=== PATIENT | female | born 1995 | race Caucasian/White ===

== ENCOUNTER → 2017-02-14 | Outpatient (CLI) | payer BC ==
[2016-03-14 06:52] VITALS: BP 122/82
[~2017-02-14] MED LIST: BACI28.43 TP
[2017-02-14 09:13] LABS: ALBUMIN 3.7 g/dL (3.4-5.0); CALCIUM 9.1 mg/dL (8.5-10.1); CREATININE 0.9 mg/dL (0.6-1.0); GFR 77.6; POTASSIUM 3.7 mmol/L (3.5-5.1); TOTAL BILIRUBIN 0.4 mg/dL (0.2-1.0); TOTAL PROTEIN 7.5 g/dL (6.4-8.2)
[2017-02-14 09:15] LABS: BASO % 1 % (0-3); EOS % 3 % (0-3); HEMATOCRIT 39.3 % (36.0-47.0); HEMOGLOBIN 13.6 g/dL (12.0-15.5); LYMPH # 2.4 x10^3/uL (1.0-4.8); LYMPH % 28 % (24-48); MEAN CORPUSCULAR HEMOGLOBIN 31 pg (25-35); MEAN CORPUSCULAR HGB CONC 35 g/dL (31-37); MEAN CORPUSCULAR VOLUME 89 fL (79-100); MONO % 7 % (0-9); NEUT % 62 % (31-73); PLATELET COUNT 235 x10^3/uL (140-400); RED BLOOD COUNT 4.41 x10^6/uL (3.50-5.40); RED CELL DISTRIBUTION WIDTH 12.6 % (11.5-14.5); WHITE BLOOD COUNT 8.5 x10^3/uL (4.0-11.0)
[2017-02-14 09:26] LABS: FREE T4 0.91 ng/dL (0.76-1.46)
== END | disposition home or self-care (01) ==
LOC: LAB 08:25
PROVIDERS: ATTEND Physician Assistant
DX: K51.90 Ulcerative colitis, unspecified, without complications (principal)
CPT/HCPCS: 36415; 80053; 84439; 84443; 84481; 85027

== ENCOUNTER 2018-08-19 15:29 | Emergency (ER) | payer BC, OTHER ==
[~2018-08-19] VITALS: Ht 162.6 cm; Wt 65.8 kg
[2018-08-19 15:51] VITALS: BP 106/68
[2018-08-19] MEDS ORDERED: IPRATRPIUM/ALBUTEROL 0.5/2.5MG 3 ML NEBU. NEB ONE (16:00)
[2018-08-19 16:14] LABS: BILIRUBIN,URINE NEGATIVE (NEG); CLARITY,URINE CLEAR; COLOR,URINE YELLOW; NITRITE,URINE NEGATIVE (NEG); PH,URINE 6.5; PROTEIN,URINE NEGATIVE (NEG-TRACE)
[2018-08-19 16:26] LABS: INFLUENZA A PATIENT NEGATIVE (NEGATIVE); INFLUENZA B PATIENT NEGATIVE (NEGATIVE)
[2018-08-19 16:36] LABS: BACTERIA,URINE MODERATE /HPF (0-FEW); RBC,URINE OCC /HPF (0-2); SQUAMOUS EPITHELIAL CELL,UR MOD /LPF; WBC,URINE OCC /HPF (0-4)
[2018-08-19] MEDS ORDERED: ALBU2.5V8 INH (16:46)
[2018-08-19] MEDS ORDERED: PRED50TA PO (16:46)
--- NOTE | 2018-08-19 16:46 | PHYS DOC ---
Past Medical History Past Medical History: Other Additional Past Medical Histor: ULCERATIVE COLITIS Past Surgical History: No Surgical History Alcohol Use: Occasionally Drug Use: None Adult General Chief Complaint Chief Complaint: SORE THROAT HPI HPI Patient is a 23 year old [f__sex] who presents with [] Review of Systems Review of Systems Constitutional: Denies fever or chills [] Eyes: Denies change in visual acuity, redness, or eye pain [] HENT: Denies nasal congestion or sore throat [] Respiratory: Denies cough or shortness of breath [] Cardiovascular: No additional information not addressed in HPI [] GI: Denies abdominal pain, nausea, vomiting, bloody stools or diarrhea [] : Denies dysuria or hematuria [] Musculoskeletal: Denies back pain or joint pain [] Integument: Denies rash or skin lesions [] Neurologic: Denies headache, focal weakness or sensory changes [] Endocrine: Denies polyuria or polydipsia [] All other systems were reviewed and found to be within normal limits, except as documented in this note. Current Medications Current Medications Current Medications Medications (Trade) Dose Ordered Sig/Rosendo Start Time Stop Time Status Last Admin Dose Admin Albuterol/ Ipratropium (Duoneb) 3 ml 1X ONCE 08/19/18 16:00 08/19/18 16:01 DC 08/19/18 15:49 3 ML Ibuprofen (Motrin) 800 mg 1X ONCE 08/19/18 17:00 08/19/18 17:01 08/19/18 16:41 800 MG Allergies Allergies Allergies Coded Allergies Type Severity Reaction Last Updated Verified No Known Drug Allergies 03/14/16 No Physical Exam Physical Exam Constitutional: Well developed, well nourished, no acute distress, non-toxic appearance. [] HENT: Normocephalic, atraumatic, bilateral external ears normal, oropharynx moist, no oral exudates, nose normal. [] Eyes: PERRLA, EOMI, conjunctiva normal, no discharge. [] Neck: Normal range of motion, no tenderness, supple, no stridor. [] Cardiovascular:Heart rate regular rhythm, no murmur [] Lungs & Thorax: Bilateral breath sounds clear to auscultation [] Abdomen: Bowel sounds normal, soft, no tenderness, no masses, no pulsatile masses. [] Skin: Warm, dry, no erythema, no rash. [] Back: No tenderness, no CVA tenderness. [] Extremities: No tenderness, no cyanosis, no clubbing, ROM intact, no edema. [] Neurologic: Alert and oriented X 3, normal motor function, normal sensory function, no focal deficits noted. [] Psychologic: Affect normal, judgement normal, mood normal. [] Current Patient Data Vital Signs Vital Signs Date Time Temp Pulse Resp B/P (MAP) Pulse Ox O2 Delivery O2 Flow Rate FiO2 08/19/18 15:51 Room Air 08/19/18 15:51 98.7 82 16 106/68 (81) 98 98.7 Lab Values Laboratory Tests Test 08/19/18 15:40 08/19/18 15:50 08/19/18 16:07 Influenza Type A Antigen Negative (NEGATIVE) Influenza Type B Antigen Negative (NEGATIVE) Urine Collection Type Unknown Urine Color Yellow Urine Clarity Clear Urine pH 6.5 Urine Specific [place] >=1.030 Urine Protein Negative mg/dL (NEG-TRACE) Urine Glucose (UA) Negative mg/dL (NEG) Urine Ketones (Stick) Negative mg/dL (NEG) Urine Blood Negative (NEG) Urine Nitrite Negative (NEG) Urine Bilirubin Negative (NEG) Urine Urobilinogen Dipstick 1.0 mg/dL (0.2 mg/dL) Urine Leukocyte Esterase Negative (NEG) Urine RBC Occ /HPF (0-2) Urine WBC Occ /HPF (0-4) Urine Squamous Epithelial Cells Mod /LPF Urine Bacteria Moderate /HPF (0-FEW) Urine Mucus Marked /LPF POC Urine HCG, Qualitative Hcg negative (Negative) EKG EKG [] Radiology/Procedures Radiology/Procedures [] Course & Med Decision Making Course & Med Decision Making Pertinent Labs and Imaging studies reviewed. (See chart for details) [] Dragon Disclaimer Dragon Disclaimer This electronic medical record was generated, in whole or in part, using a voice recognition dictation system. Departure Departure Impression: Primary Impression: Viral illness Disposition: 01 HOME, SELF-CARE Condition: STABLE Referrals: JOSE ARMANDO COREA MD (PCP) Patient Instructions: Upper Respiratory Infection, Adult Additional Instructions: Take medication as directed. Follow-up with your primary care provider in 3-4 days if not improving or return to the emergency department if worsening. You may use [id number] cough and cold medication for symptom relief. Scripts Prednisone (PREDNISONE) 50 Mg Tablet 1 TAB PO DAILY for wheezing, #5 TAB Prov: AYAAN HOUSE APRN 08/19/18 Albuterol Sulfate (Proair Hfa) 8.5 Gm Hfa.aer.ad 1 PUFF INH PRN Q6HRS PRN for SHORTNESS OF BREATH, #1 INHALER Prov: AYAAN HOUSE APRN 08/19/18 AYAAN HOUSE APRN Aug 19, 2018 16:46
[2018-08-19] MEDS ORDERED: IBUPROFEN 400 MG TABLET. PO ONE (17:00)
== END 2018-08-19 17:02 | disposition home or self-care (01) ==
LOC: ER 15:29
DX: B34.9 Viral infection, unspecified (principal)
CPT/HCPCS: 81001; 81025; 87070; 87086; 87804; 87880; 94640; 99283; J7620

== ENCOUNTER → 2020-10-05 | Outpatient (CLI) | payer OTHER, BC ==
[~2020-10-05] MED LIST changes: +ALBU2.5V8 INH; +PRED50TA PO
[2020-10-05 11:52] LABS: HEMATOCRIT 44.4 % (36.0-47.0); HEMOGLOBIN 15.1 g/dL (12.0-15.5); RED BLOOD COUNT 4.85 x10^6/uL (3.50-5.40); RED CELL DISTRIBUTION WIDTH 12.2 % (11.5-14.5); WHITE BLOOD COUNT 5.2 x10^3/uL (4.0-11.0)
[2020-10-05 12:06] LABS: ALBUMIN 4.4 g/dL (3.4-5.0); ALBUMIN/GLOBULIN RATIO 1.2 (1.0-1.7); CALCIUM 9.3 mg/dL (8.5-10.1); CREATININE 0.7 mg/dL (0.6-1.0); GFR 100.4; POTASSIUM 3.8 mmol/L (3.5-5.1); TOTAL BILIRUBIN 0.6 mg/dL (0.2-1.0); TOTAL PROTEIN 8.2 g/dL (6.4-8.2)
[2020-10-05 12:16] LABS: THYROID STIM HORMONE (TSH) 1.412 uIU/mL (0.358-3.74)
[2020-10-08 04:10] LABS: ESTROGEN LEVEL 131 pg/mL (.)
== END ==
LOC: LAB 11:14
PROVIDERS: ATTEND Nurse Practitioner Gerontology
DX: R68.82 Decreased libido (principal); R53.83 Other fatigue; E55.9 Vitamin D deficiency, unspecified
CPT/HCPCS: 36415; 80053; 82306; 82672; 84402; 84403; 84439; 84443; 85027

== ENCOUNTER → 2020-12-15 | Outpatient (CLI) | payer OTHER, BC | LOC: LAB 06:44 | PROVIDERS: ATTEND Obstetrics & Gynecology | DX: N92.6 Irregular menstruation, unspecified (principal) | CPT/HCPCS: 36415; 84702; 86850; 86900; 86901 ==

== ENCOUNTER → 2020-12-22 | Outpatient (CLI) | payer OTHER, BC ==
--- NOTE | 2020-12-23 14:12 | KCIC ---
US OB <14 WKS +TV DATE: 12/22/2020 3:15 PM INDICATION: Reason: ENCOUNTER FOR 1ST TRIMESTER PREG. LMP 10/27/2020 COMPARISON: None. TECHNIQUE: Transabdominal ultrasonography of the pelvis was performed. Color Doppler and duplex were utilized as appropriate. FINDINGS: The uterus measures 10.4 x 7.2 x 6.6 cm. There is living intrauterine gestation with heart rate of 141 beats per minute. There is small yolk s ac present. [place]-rump length measurement of 0.87 cm corresponds with estimated ultrasound gestational age of 6 w eeks and 6 days. Regular gestational sac with diameter 2.31 cm, which corresponds to 7 weeks 2 days g estation. There is no free pelvic fluid. The right ovary measures 3.7 x 3.2 x 3.2 cm. The left ovary measures 3.6 x 3.1 x 1.9 cm. No evidence of ovarian torsion. There is normal blood flow to both ovaries by color Doppler with arterial and shannon ous waveforms detected. IMPRESSION: 1. Single living intrauterine gestation. 2. [place]-rump length corresponds with estimated ultrasound gestational age of 7 weeks and 1 days. KVNG by ultrasound 08/09/2021. Electronically signed by: Ayan Humphrey MD (12/23/2020 2:10 PM) [facility]
== END ==
LOC: KCIC US 15:09
PROVIDERS: ATTEND Nurse Practitioner Gerontology
DX: Z32.01 Encounter for pregnancy test, result positive (principal); Z3A.01 Less than 8 weeks gestation of pregnancy
CPT/HCPCS: 76801; 76817

== ENCOUNTER → 2021-01-07 | Outpatient (CLI) | payer OTHER, BC ==
[2021-01-07 12:21] LABS: BASO # 0.1 x10^3/uL (0.0-0.2); BASO % 1 % (0-3); EOS # 0.1 x10^3/uL (0.0-0.7); EOS % 1 % (0-3); HEMATOCRIT 39.7 % (36.0-47.0); HEMOGLOBIN 13.4 g/dL (12.0-15.5); LYMPH # 2.1 x10^3/uL (1.0-4.8); LYMPH % 23 % (24-48); MEAN CORPUSCULAR HEMOGLOBIN 31 pg (25-35); MEAN CORPUSCULAR HGB CONC 34 g/dL (31-37); MEAN CORPUSCULAR VOLUME 92 fL (79-100); MONO # 0.7 x10^3/uL (0.0-1.1); MONO % 8 % (0-9); NEUT # 6.1 x10^3/uL (1.8-7.7); NEUT % 67 % (31-73); PLATELET COUNT 254 x10^3/uL (140-400); RED BLOOD COUNT 4.32 x10^6/uL (3.50-5.40); RED CELL DISTRIBUTION WIDTH 12.3 % (11.5-14.5); WHITE BLOOD COUNT 9.1 x10^3/uL (4.0-11.0)
[2021-01-07 12:47] LABS: FREE T4 0.98 ng/dL (0.76-1.46); THYROID STIM HORMONE (TSH) 0.712 uIU/mL (0.358-3.74)
[2021-01-08 00:18] LABS: HEMOGLOBIN A1C 5.1 % (4.8-5.6)
== END ==
LOC: LAB 11:40
PROVIDERS: ATTEND Obstetrics & Gynecology
DX: Z34.91 Encounter for supervision of normal pregnancy, unspecified, first trimester (principal); Z3A.10 10 weeks gestation of pregnancy
CPT/HCPCS: 36415; 83036; 84439; 84443; 85025; 86592; 86703; 86762; 86803; 86900; 86901; 87086; 87340

== ENCOUNTER → 2021-03-19 | Outpatient (CLI) | payer OTHER, BC | LOC: LAB 11:06 | PROVIDERS: ATTEND Obstetrics & Gynecology | DX: Z34.02 Encounter for supervision of normal first pregnancy, second trimester (principal) | CPT/HCPCS: 36415; 81511 ==

== ENCOUNTER → 2021-03-26 | Outpatient (CLI) | payer OTHER, BC ==
--- NOTE | 2021-03-26 17:16 | RAD ---
EXAM: OB ULTRASOUND, > 14 WEEKS HISTORY: anatomy survey. COMPARISON: 12/22/2020 TECHNIQUE: Multiple grayscale images, color Doppler, and M-mode images of the uterus are obtained. FINDINGS: There is a single intrauterine gestation in transverse presentation. The placenta is anterior in loca tion. There is suspected artifactual placenta previa on initial images due to a lower uterine contrac tion. The placenta is approximately 4.0 cm from the internal cervical os on the final images.. There are small hypoechoic areas within the placenta, the appearance of which favors placental lakes. The a mount of amniotic fluid appears appropriate. Amniotic fluid index is 11.3 cm. Cervical length is 5.2 cm. Biometrical data: BPD = 4.75 cm for 20 weeks 3 days. HC = 18.68 cm for 21 weeks 0 days. AC = 15.56 cm for 20 weeks 5 days. FL = 3.18 cm for 19 weeks 6 days. HC/AC ratio = 1.2. Overall, the estimated sonographic gestational age is 20 weeks and 4 days for an estimated date of de livery of 08/09/2021. The estimated date of delivery provided by the last menstrual period is 021. Estimated weight is 352 grams. A 4 chamber heart is identified with positive cardiac activity. The estimated heart rate is 131 beats per minute. Bilateral upper and lower extremities are identified. There is a three-vessel cord with cord insertion visualized. stomach and urinary bladder are identified. Both kidneys are seen. The spine and brain are unremarkable. No obvious anatomic abnormalities are identified. The maternal adnexal regions are unremarkable. IMPRESSION: 1. Single imaging fetus in transverse presentation with a normal heart rate and gestational age based on ultrasound measurements of 20 weeks and 4 days. 2. Note is made that there is suggestion of placenta previa on the initial images. However, this is n ot seen on final images. The placental edge extends to 4.0 cm from the internal cervical os. 3. Suspected small placental lakes. 4. Otherwise, unremarkable anatomy survey. Electronically signed by: Gabby Rascon MD (03/26/2021 5:14 PM) [id number]
== END ==
LOC: US 15:33
PROVIDERS: ATTEND Obstetrics & Gynecology
DX: O32.2XX0 Maternal care for transverse and oblique lie, not applicable or unspecified (principal); Z3A.20 20 weeks gestation of pregnancy
CPT/HCPCS: 76805

== ENCOUNTER → 2021-05-05 | Outpatient (CLI) | payer OTHER, BC ==
[2021-05-05 07:51] LABS: BASO # 0.1 x10^3/uL (0.0-0.2); BASO % 1 % (0-3); EOS # 0.2 x10^3/uL (0.0-0.7); EOS % 1 % (0-3); HEMOGLOBIN 12.4 g/dL (12.0-15.5); LYMPH % 17 % (24-48); MEAN CORPUSCULAR HEMOGLOBIN 32 pg (25-35); MEAN CORPUSCULAR HGB CONC 34 g/dL (31-37); MEAN CORPUSCULAR VOLUME 95 fL (79-100); MONO # 0.7 x10^3/uL (0.0-1.1); MONO % 6 % (0-9); NEUT # 8.9 x10^3/uL (1.8-7.7); NEUT % 75 % (31-73); PLATELET COUNT 256 x10^3/uL (140-400); RED BLOOD COUNT 3.92 x10^6/uL (3.50-5.40); RED CELL DISTRIBUTION WIDTH 12.9 % (11.5-14.5); WHITE BLOOD COUNT 11.8 x10^3/uL (4.0-11.0)
== END ==
LOC: LAB 07:29
PROVIDERS: ATTEND Obstetrics & Gynecology
DX: Z34.93 Encounter for supervision of normal pregnancy, unspecified, third trimester (principal); Z3A.00 Weeks of gestation of pregnancy not specified
CPT/HCPCS: 36415; 82950; 85025; 86592; 86850; 86900; 86901

== ENCOUNTER → 2021-07-12 | Outpatient (CLI) | payer OTHER, BC | LOC: LAB 06:37 | PROVIDERS: ATTEND Obstetrics & Gynecology | DX: Z34.93 Encounter for supervision of normal pregnancy, unspecified, third trimester (principal) | CPT/HCPCS: 87653 ==

== ENCOUNTER 2021-09-03 06:02 | Inpatient (IN) | payer OTHER, BC ==
[~2021-09-03] VITALS: Ht 162.6 cm; Wt 71.0 kg
[2021-09-03] VITALS (10 sets, daily range): BP systolic 84–106; BP diastolic 45–64
--- NOTE | 2021-09-03 06:23 | PHYS DOC ---
Past Medical History Past Medical History: Other Additional Past Medical Histor: ULCERATIVE COLITIS Past Surgical History: No Surgical History Smoking Status: Never Smoker Alcohol Use: Occasionally Drug Use: None General Adult EDM: Chief Complaint: SHORTNESS OF BREATH HPI: HPI: Patient is a 26 year old female with history of recent vaginal delivery (4 weeks ago) who presents with acute onset right-sided abdominal pain. Patient was in her usual state of health when she went to bed last night. At 1 AM awoke with sharp right-sided abdominal pain. Includes a right upper quadrant, Epigastrium, and occasionally right lower quadrant. Associated with nausea but no vomiting. Denies fever/chills. Normal bowel movements. Has had occasional vaginal spotting. No change in vaginal discharge. No urinary symptoms. No hx of abdominal surgery. Review of Systems: Review of Systems: Constitutional: Denies fever or chills. [] Eyes: Denies change in visual acuity. [] HENT: Denies nasal congestion or sore throat. [] Respiratory: Denies cough or shortness of breath. [] Cardiovascular: Denies chest pain or edema. [] GI: Reports right-sided abdominal pain and nausea. Denies constipation, vomiting, bloody stools or diarrhea. [] : Denies dysuria. + Continued vaginal spotting (unchanged). Denies vaginal discharge.[] Musculoskeletal: Denies back pain or joint pain. [] Neurologic: No focal weakness or sensory changes. [] Psychiatric: Denies depression or anxiety. [] Heart Score: C/O Chest Pain: No Current Medications: Current Medications Medications (Trade) Dose Ordered Sig/Rosendo Start Time Stop Time Status Last Admin Dose Admin Morphine Sulfate (Morphine Sulfate) 4 mg 1X ONCE 09/03/21 07:00 09/03/21 07:01 Ondansetron HCl (Zofran) 4 mg 1X ONCE 09/03/21 07:00 09/03/21 07:01 Allergies: Allergies: Allergies Coded Allergies Type Severity Reaction Last Updated Verified No Known Drug Allergies 03/14/16 No Physical Exam: PE: Constitutional: Ill-appearing but nontoxic. Cardiovascular: Regular rate and rhythm Lungs & Thorax: Normal work of breathing Abdomen: Soft, nonrigid. Tenderness to palpation in right upper quadrant and right lower quadrant with involuntary guarding. Right lower quadrant seems to be the most tender location. Skin: Warm, dry, no erythema, no rash. [] Back: No tenderness, no CVA tenderness. [] Extremities: No tenderness, no cyanosis, no clubbing, ROM intact, no edema. [] Neurologic: Alert and oriented X 3, normal motor function, normal sensory function, no focal deficits noted. [] Psychologic: Affect normal, judgement normal, mood normal. [] EKG: EKG: Sinus rhythm. Rate 64. Normal axis. NV 180 ms, QRS 94 ms, QTc 425 ms. No pathologic Q waves or T wave inversions. No ST elevation or depression. [] Radiology/Procedures: Radiology/Procedures: [] Impression: [facility] [address] [place], [place] [id number] IMAGING REPORT Signed PATIENT: JACQUE BAH ACCOUNT: [id number] : 1995 LOCATION: ER AGE: 26 SEX: F EXAM STATUS: REG ER ORD. PHYSICIAN: MATILDA UDNN MD REASON: right sided abd pain, 4wks post- PROCEDURE: CT ABD PELV W/ IV CONTRST ONLY CT ABDOMEN+PELVIS W History: right sided abd pain, 4wks post- Comparison: None. Technique: After administration of intravenous contrast, helical CT of the abdomen and pelvis was performed from the lung bases through the ischial tuberosities. Coronal and sagittal reconstructions were obtained. 75 mL of Omnipaque 300 were used. One or more of the following dose reduction techniques were utilized: Automated exposure control (AEC), Adjustment of mA and/or kV according to patient size, Use of iterative reconstruction technique such as ASiR, CT scan done according to ALARA and image gently/image wisely Abdomen Findings: The visualized lung bases are clear. The liver, gallbladder, pancreas, spleen, and bilateral adrenal glands are normal. Symmetric renal enhancement. There is no focal renal mass. There is no hydronephrosis. The visualized loops of small bowel are normal. The visualized loops of large bowel are normal. There is no evidence of bowel obstruction. Dilated fluid- filled appendix measures 12 mm in diameter. No surrounding inflammation, free air, or fluid collection. There is no mesenteric or retroperitoneal adenopathy. The abdominal aorta is normal in caliber. Pelvis Findings: Urinary bladder is normal. Uterus is present. No pelvic free fluid. There is no pelvic or inguinal adenopathy. There is no acute bony abnormality. IMPRESSION: Dilated fluid-filled appendix measures 12 mm in diameter. No surrounding inflammation, free air, or fluid collection. Findings could relate to an early appendicitis. Electronically signed by: María Humphrey MD (09/03/2021 7:35 AM) [id number] DICTATED and SIGNED BY: MARÍA HUMPHREY MD DATE: 09/03/21 [id number] 0 Course & Med Decision Making: Course & Med Decision Making Pertinent Labs and Imaging studies reviewed. (See chart for details) Patient a 26-year-old female with history of recent vaginal delivery approximately 4 weeks ago at [facility] who presents with acute onset right-sided abdominal pain. On arrival is afebrile, vital signs are stable. Patient is ill-appearing but nontoxic. The majority of her reported pain is in the right upper quadrant, but the most tender location of her exam is right lower quadrant. Raising concern for cholelithiasis/biliary colic, cholecystitis, choledocholithiasis, and appendicitis as potential causes for pain. She has no pelvic complaints to suggest endometritis. 0659 LFT's non-obstructive pattern. very mild ALT elevation. Lipase normal. CT pending. 07[address] to 14.4k CT shows signs of early appendicitis which correlates well with symptoms. Will give abx and discuss with general surgery. 0751 Krystal Disclaimer: Krystal Disclaimer: This electronic medical record was generated, in whole or in part, using a voice recognition dictation system. Departure Departure Impression: Primary Impression: Appendicitis Disposition: ADMITTED INPATIENT Admitting Physician: KAYLA Duran) Condition: STABLE Referrals: SERGE SOLIZ APRN (PCP) MATILDA DUNN MD Sep 03, 2021 06:23
[2021-09-03 06:54] LABS: BILIRUBIN,URINE NEGATIVE (NEG); CLARITY,URINE CLEAR; COLOR,URINE YELLOW; NITRITE,URINE NEGATIVE (NEG); PROTEIN,URINE NEGATIVE (NEG-TRACE); UROBILINOGEN,URINE 0.2 mg/dL (0.2 mg/dL)
[2021-09-03 06:55] LABS: CALCIUM 9.3 mg/dL (8.5-10.1); CREATININE 0.9 mg/dL (0.6-1.0); GFR 74.6; POTASSIUM 3.3 mmol/L (3.5-5.1)
[2021-09-03] MEDS ORDERED: ONDANSETRON PF 4 MG/2 ML VIAL. IVP ONE (07:00)
[2021-09-03] MEDS ORDERED: MORPHINE SULFATE 4 MG/ML INJ. IVP ONE (07:00)
[2021-09-03] MEDS ORDERED: CONTRAST GIVEN. MC PRN (07:00)
[2021-09-03] MEDS ORDERED: IOHEXOL 300 MG/ML 100ML VIAL. IV ONE (07:00)
[2021-09-03 07:01] LABS: ALBUMIN 3.9 g/dL (3.4-5.0); TOTAL BILIRUBIN 0.4 mg/dL (0.2-1.0)
[2021-09-03 07:07] LABS: BASO # 0.1 x10^3/uL (0.0-0.2); BASO % 1 % (0-3); EOS # 0.2 x10^3/uL (0.0-0.7); EOS % 2 % (0-3); HEMATOCRIT 42.4 % (36.0-47.0); HEMOGLOBIN 13.9 g/dL (12.0-15.5); LYMPH # 2.1 x10^3/uL (1.0-4.8); LYMPH % 15 % (24-48); MEAN CORPUSCULAR HEMOGLOBIN 30 pg (25-35); MEAN CORPUSCULAR HGB CONC 33 g/dL (31-37); MEAN CORPUSCULAR VOLUME 92 fL (79-100); MONO # 0.8 x10^3/uL (0.0-1.1); MONO % 6 % (0-9); NEUT # 11.1 x10^3/uL (1.8-7.7); NEUT % 78 % (31-73); PLATELET COUNT 266 x10^3/uL (140-400); RED CELL DISTRIBUTION WIDTH 12.1 % (11.5-14.5); WHITE BLOOD COUNT 14.4 x10^3/uL (4.0-11.0)
[2021-09-03 07:17] LABS: BACTERIA,URINE 0 /HPF (0-FEW); WBC,URINE OCC /HPF (0-4)
[2021-09-03] MEDS ORDERED: MORPHINE SULFATE 2 MG/ML INJ. IVP ONE (07:30)
--- NOTE | 2021-09-03 07:38 | RAD ---
CT ABDOMEN+PELVIS W History: right sided abd pain, 4wks post- Comparison: None. Technique: After administration of intravenous contrast, helical CT of the abdomen and pelvis was per formed from the lung bases through the ischial tuberosities. Coronal and sagittal reconstructions wer e obtained. 75 mL of Omnipaque 300 were used. One or more of the following dose reduction techniques were utilized: Automated exposure control (AEC), Adjustment of mA and/or kV according to patient size , Use of iterative reconstruction technique such as ASiR, CT scan done according to ALARA and image g ently/image wisely Abdomen Findings: The visualized lung bases are clear. The liver, gallbladder, pancreas, spleen, and bilateral adrenal glands are normal. Symmetric renal enhancement. There is no focal renal mass. There is no hydronephrosis. The visualized loops of small bowel are normal. The visualized loops of large bowel are normal. There is no evidence of bowel obstruction. Dilated fluid-filled appendix measures 12 mm in diameter. No gonzalez rrounding inflammation, free air, or fluid collection. There is no mesenteric or retroperitoneal adenopathy. The abdominal aorta is normal in caliber. Pelvis Findings: Urinary bladder is normal. Uterus is present. No pelvic free fluid. There is no pelvic or inguinal ad enopathy. There is no acute bony abnormality. IMPRESSION: Dilated fluid-filled appendix measures 12 mm in diameter. No surrounding inflammation, free air, or f luid collection. Findings could relate to an early appendicitis. Electronically signed by: Ayan Humphrey MD (09/03/2021 7:35 AM) [id number]
[2021-09-03 07:49] LABS: U PREG PATIENT POSITIVE (NEG)
[2021-09-03] MEDS ORDERED: HYDROmorphone 2 MG/ML INJ. ONE ×2 (08:01→10:25)
[2021-09-03] MEDS ORDERED: HYDROmorphone 2 MG/ML INJ. IVP ONE (08:15)
[2021-09-03] MEDS ORDERED: MORPHINE SULFATE 4 MG/ML INJ. IVP PRN (08:30)
[2021-09-03] MEDS ORDERED: ONDANSETRON PF 4 MG/2 ML VIAL. IVP PRN (08:30)
--- NOTE | 2021-09-03 08:33 | PDOC2 ---
CONSULT Date of Consult Date of Consult DATE: 09/03/21 TIME: 08:30 Reason for Consult Reason for Consult: Acute appendicitis Referring Physician Referring Physician: Cecile Identification/Chief Complaint Chief Complaint Right lower quadrant abdominal pain Source Source: Chart review, Patient History of Present Illness Reason for Visit: 26-year-old female who had a spontaneous vaginal delivery 4 weeks ago developed right lower quadrant abdominal pain last evening which worsened over the night she came to the emergency department further evaluation. CT scan shows dilated appendix consistent with a early acute appendicitis elevated leukocytosis. Past Medical History Cardiovascular: No pertinent hx Pulmonary: No pertinent hx GI: No pertinent hx Heme/Onc: No pertinent hx Hepatobiliary: No pertinent hx Psych: No pertinent hx Rheumatologic: No pertinent hx Infectious disease: No pertinent hx ENT: No pertinent hx Renal/: No pertinent hx Endocrine: No pertinent hx Dermatology: No pertinent hx Past Surgical History Past Surgical History: No pertinent history Family History Family History: No Significant Social History No ALCOHOL: none Drugs: None Lives: with Family Current Problem List Problem List Problems Medical Problems: (1) Appendicitis Status: Acute Current Medications Current Medications Current Medications Ondansetron HCl (Zofran) 4 mg 1X ONCE IVP Last administered on 09/03/21at 06:24; Start 09/03/21 at 07:00; Stop 09/03/21 at 07:01; Status DC Morphine Sulfate (Morphine Sulfate) 4 mg 1X ONCE IVP Last administered on 09/03/21at 06:24; Start 09/03/21 at 07:00; Stop 09/03/21 at 07:01; Status DC Iohexol (Omnipaque 300 Mg/ml) 75 ml 1X ONCE IV Last administered on 09/03/21at 07:10; Start 09/03/21 at 07:00; Stop 09/03/21 at 07:01; Status DC Info (CONTRAST GIVEN -- Rx MONITORING) 1 each PRN DAILY PRN MC SEE COMMENTS; Start 09/03/21 at 07:00; Stop 09/05/21 at 06:59 Morphine Sulfate (Morphine Sulfate) 2 mg 1X ONCE IVP Last administered on 09/03/21at 07:24; Start 09/03/21 at 07:30; Stop 09/03/21 at 07:31; Status DC Piperacillin Sod/ Tazobactam Sod 4.5 gm/Sodium Chloride 100 ml @ 200 mls/hr 1X ONCE IV ; Start 09/03/21 at 09:00; Stop 09/03/21 at 09:29 Hydromorphone HCl (Dilaudid) 2 mg STK-MED ONCE .ROUTE ; Start 09/03/21 at 08:01; Stop 09/03/21 at 08:01; Status DC Hydromorphone HCl (Dilaudid) 0.25 mg 1X ONCE IVP Last administered on 09/03/21at 08:10; Start 09/03/21 at 08:15; Stop 09/03/21 at 08:16; Status DC Ondansetron HCl (Zofran) 4 mg PRN Q8HRS PRN IVP NAUSEA/VOMITING; Start 09/03/21 at 08:30; Stop 09/04/21 at 08:29 Morphine Sulfate (Morphine Sulfate) 4 mg PRN Q2HR PRN IVP PAIN; Start 09/03/21 at 08:30; Stop 09/04/21 at 08:29 Active Scripts Active Prednisone 50 Mg Tablet 1 Tab PO DAILY Proair Hfa (Albuterol Sulfate) 8.5 Gm Hfa.aer.ad 1 Puff INH PRN Q6HRS PRN Bacitracin 30 Gm Oint...g. 30 Gm TP BID Allergies Allergies: Coded Allergies: No Known Drug Allergies (Unverified , 03/14/16) ROS Gastrointestinal: Yes Nausea, Yes Abdominal Pain Physical Exam General: Alert, Oriented X3, Cooperative, mild distress HEENT: Atraumatic, EOMI Lungs: Clear to auscultation, Normal air movement Heart: Regular rate, No murmurs Abdomen: Soft, Other (Tender to palpation right lower quadrant) Extremities: No edema Skin: No significant lesion Neuro: Normal speech Psych/Mental Status: Mental status NL Vitals VITALS Vital Signs Date Time Temp Pulse Resp B/P (MAP) Pulse Ox O2 Delivery O2 Flow Rate FiO2 09/03/21 08:10 27 100 Room Air 09/03/21 07:26 97.3 67 114/63 (80) 97.3 Labs Labs Laboratory Tests Test 09/03/21 06:10 09/03/21 06:37 09/03/21 07:51 White Blood Count 14.4 x10^3/uL (4.0-11.0) Red Blood Count 4.60 x10^6/uL (3.50-5.40) Hemoglobin 13.9 g/dL (12.0-15.5) Hematocrit 42.4 % (36.0-47.0) Mean Corpuscular Volume 92 fL (79-100) Mean Corpuscular Hemoglobin 30 pg (25-35) Mean Corpuscular Hemoglobin Concent 33 g/dL (31-37) Red Cell Distribution Width 12.1 % (11.5-14.5) Platelet Count 266 x10^3/uL (140-400) Neutrophils (%) (Auto) 78 % (31-73) Lymphocytes (%) (Auto) 15 % (24-48) Monocytes (%) (Auto) 6 % (0-9) Eosinophils (%) (Auto) 2 % (0-3) Basophils (%) (Auto) 1 % (0-3) Neutrophils # (Auto) 11.1 x10^3/uL (1.8-7.7) Lymphocytes # (Auto) 2.1 x10^3/uL (1.0-4.8) Monocytes # (Auto) 0.8 x10^3/uL (0.0-1.1) Eosinophils # (Auto) 0.2 x10^3/uL (0.0-0.7) Basophils # (Auto) 0.1 x10^3/uL (0.0-0.2) Sodium Level 140 mmol/L (136-145) Potassium Level 3.3 mmol/L (3.5-5.1) Chloride Level 102 mmol/L (98-107) Carbon Dioxide Level 29 mmol/L (21-32) Anion Gap 9 (6-14) Blood Urea Nitrogen 22 mg/dL (7-20) Creatinine 0.9 mg/dL (0.6-1.0) Estimated GFR (Cockcroft-Gault) 74.6 BUN/Creatinine Ratio 24 (6-20) Glucose Level 103 mg/dL (70-99) Calcium Level 9.3 mg/dL (8.5-10.1) Total Bilirubin 0.4 mg/dL (0.2-1.0) Aspartate Amino Transf (AST/SGOT) 24 U/L (15-37) Alanine Aminotransferase (ALT/SGPT) 61 U/L (14-59) Alkaline Phosphatase 92 U/L (46-116) Total Protein 8.0 g/dL (6.4-8.2) Albumin 3.9 g/dL (3.4-5.0) Albumin/Globulin Ratio 1.0 (1.0-1.7) Lipase 88 U/L (73-393) Urine Collection Type Unknown Urine Color Yellow Urine Clarity Clear Urine pH 6.0 (<5.0-8.0) Urine Specific [place] >=1.030 (1.000-1.030) Urine Protein Negative mg/dL (NEG-TRACE) Urine Glucose (UA) Negative mg/dL (NEG) Urine Ketones (Stick) Negative mg/dL (NEG) Urine Blood Moderate (NEG) Urine Nitrite Negative (NEG) Urine Bilirubin Negative (NEG) Urine Urobilinogen Dipstick 0.2 mg/dL (0.2 mg/dL) Urine Leukocyte Esterase Trace (NEG) Urine RBC 6-10 /HPF (0-2) Urine WBC Occ /HPF (0-4) Urine Squamous Epithelial Cells Few /LPF Urine Bacteria 0 /HPF (0-FEW) Urine Test Positive (NEG) SARS-CoV-2 Antigen (Rapid) Negative (NEGATIVE) Laboratory Tests Test 09/03/21 06:10 09/03/21 06:37 09/03/21 07:51 White Blood Count 14.4 x10^3/uL (4.0-11.0) Red Blood Count 4.60 x10^6/uL (3.50-5.40) Hemoglobin 13.9 g/dL (12.0-15.5) Hematocrit 42.4 % (36.0-47.0) Mean Corpuscular Volume 92 fL (79-100) Mean Corpuscular Hemoglobin 30 pg (25-35) Mean Corpuscular Hemoglobin Concent 33 g/dL (31-37) Red Cell Distribution Width 12.1 % (11.5-14.5) Platelet Count 266 x10^3/uL (140-400) Neutrophils (%) (Auto) 78 % (31-73) Lymphocytes (%) (Auto) 15 % (24-48) Monocytes (%) (Auto) 6 % (0-9) Eosinophils (%) (Auto) 2 % (0-3) Basophils (%) (Auto) 1 % (0-3) Neutrophils # (Auto) 11.1 x10^3/uL (1.8-7.7) Lymphocytes # (Auto) 2.1 x10^3/uL (1.0-4.8) Monocytes # (Auto) 0.8 x10^3/uL (0.0-1.1) Eosinophils # (Auto) 0.2 x10^3/uL (0.0-0.7) Basophils # (Auto) 0.1 x10^3/uL (0.0-0.2) Sodium Level 140 mmol/L (136-145) Potassium Level 3.3 mmol/L (3.5-5.1) Chloride Level 102 mmol/L (98-107) Carbon Dioxide Level 29 mmol/L (21-32) Anion Gap 9 (6-14) Blood Urea Nitrogen 22 mg/dL (7-20) Creatinine 0.9 mg/dL (0.6-1.0) Estimated GFR (Cockcroft-Gault) 74.6 BUN/Creatinine Ratio 24 (6-20) Glucose Level 103 mg/dL (70-99) Calcium Level 9.3 mg/dL (8.5-10.1) Total Bilirubin 0.4 mg/dL (0.2-1.0) Aspartate Amino Transf (AST/SGOT) 24 U/L (15-37) Alanine Aminotransferase (ALT/SGPT) 61 U/L (14-59) Alkaline Phosphatase 92 U/L (46-116) Total Protein 8.0 g/dL (6.4-8.2) Albumin 3.9 g/dL (3.4-5.0) Albumin/Globulin Ratio 1.0 (1.0-1.7) Lipase 88 U/L (73-393) Urine Collection Type Unknown Urine Color Yellow Urine Clarity Clear Urine pH 6.0 (<5.0-8.0) Urine Specific [place] >=1.030 (1.000-1.030) Urine Protein Negative mg/dL (NEG-TRACE) Urine Glucose (UA) Negative mg/dL (NEG) Urine Ketones (Stick) Negative mg/dL (NEG) Urine Blood Moderate (NEG) Urine Nitrite Negative (NEG) Urine Bilirubin Negative (NEG) Urine Urobilinogen Dipstick 0.2 mg/dL (0.2 mg/dL) Urine Leukocyte Esterase Trace (NEG) Urine RBC 6-10 /HPF (0-2) Urine WBC Occ /HPF (0-4) Urine Squamous Epithelial Cells Few /LPF Urine Bacteria 0 /HPF (0-FEW) Urine Test Positive (NEG) SARS-CoV-2 Antigen (Rapid) Negative (NEGATIVE) Images Images CT scan shows dilated appendix concerning for acute appendicitis no phlegmon or perforation noted Assessment/Plan Assessment/Plan Acute appendicitis plan laparoscopic appendectomy ROBERT CASTANEDA MD Sep 03, 2021 08:33
[2021-09-03] MEDS ORDERED: BUPIVACAINE-EPI 0.25% 30 ML VIAL KIT. ONE (08:34)
[2021-09-03] MEDS ORDERED: PROCHLORPERAZINE 10 MG/2 ML VIAL. IVP PRN ×2 (08:45→09:00)
[2021-09-03] MEDS ORDERED: fentaNYL PF VIAL 100 MCG/2 ML VIAL IVP PRN ×4 (08:45→09:00)
[2021-09-03] MEDS ORDERED: HYDROmorphone 2 MG/ML INJ. IVP PRN ×2 (08:45→09:00)
[2021-09-03] MEDS ORDERED: IV RINGERS,LACTATED 1000ML 1,000 ML IV SCH ×2 (08:45→09:00)
[2021-09-03] MEDS ORDERED: MORPHINE SULFATE 2 MG/ML INJ. IVP PRN ×2 (08:45→09:00)
[2021-09-03] MEDS ORDERED: PROPOFOL 10 MG/ML (20ML) VIAL. IV ONE (08:46)
[2021-09-03] MEDS ORDERED: ONDANSETRON PF 4 MG/2 ML VIAL. ONE (08:46)
[2021-09-03] MEDS ORDERED: ROCURONIUM 100 MG/10 ML VIAL. ONE (08:46)
[2021-09-03] MEDS ORDERED: DEXAMETHASONE SOD PHOS 4 MG/ML VIAL ONE (08:46)
[2021-09-03] MEDS ORDERED: NEOSTIGMINE METHYLSULFATE 5 MG/5 ML SYRINGE. ONE (08:47)
[2021-09-03] MEDS ORDERED: GLYCOPYRROLATE 1 MG/5 ML VIAL. ONE (08:48)
[2021-09-03] MEDS ORDERED: MIDAZOLAM HCL/PF 2 MG/2 ML VIAL. ONE (08:48)
[2021-09-03] MEDS ORDERED: fentaNYL PF VIAL 100 MCG/2 ML VIAL ONE ×2 (08:48→08:50)
[2021-09-03] MEDS ORDERED: fentaNYL PF VIAL 100 MCG/2 ML VIAL IVP ONE (09:00)
[2021-09-03] MEDS ORDERED: PROCHLORPERAZINE 10 MG/2 ML VIAL. ONE (09:00)
[2021-09-03] MEDS ORDERED: PIPERACILLIN/TAZOBACTAM 4.5 GM in IV NORMAL SALINE 100ML 100 ML IV ONE (09:00)
[2021-09-03] MEDS ORDERED: PHENYLEPHRINE in 0.9% NACL PF 1 MG/10 ML SYRINGE. IV ONE (09:20)
--- NOTE | 2021-09-03 09:40 | PDOC4 ---
Operative Note Operative Note Date: September 03, 2021 at 9:38 AM Preoperative diagnosis: Acute appendicitis Postoperative diagnosis: Same Procedure: Laparoscopic appendectomy Surgeon: Rohan Specimen: Appendix Dictation: Patient is a 26-year-old female admitted to the hospital with right lower quadrant abdominal pain and CT scan showing signs consistent with acute appendicitis with elevated white count. Procedure of laparoscopic appendectomy was explained to the patient detail respites were also discussed including bleeding infection injury to intra-abdominal contents possibly sustaining further open operations alternatives to this procedure also discussed with the patient who seemed to understand and gave a verbal written consent procedure performed. Patient was taken to the operating room placed in the supine position general anesthesia was initiated once patient was sleeping intubated her abdomen was prepped and draped usual sterile fashion using ChloraPrep. Area just below t he umbilicus was injected with quarter percent Marcaine with epinephrine incision was made 11 blade scalpel and Veress needle was placed within the abdomen creating pneumoperitoneum once this was complete 12 mm port was placed and a 5 mm camera placed within the abdomen the appendix was visualized which appeared to be somewhat edematous and inflamed in the right lower quadrant a 5 mm port was placed low in the midline under direct visualization and a 5 mm port was placed in the right mid abdomen. The appendix was grasped retracted towards the anterior abdominal wall a window was propagated at the base of the appendix through the mesoappendix with a [place] dissector a Endo DOUGLAS stapler was then used to staple and transect the base of the appendix a second load was used to staple and transect the mesoappendix. The appendix was then placed in Endo Catch bag moved in the umbilicus right lower quadrant and pelvis were irrigated and suctioned dry hemostasis deemed be appropriate and the pneumoperitoneum was reduced all ports were removed the fascial defect at the umbilicus was closed with a [id number] 0 Vicryl suture and the skin was reapproximated all port sites for subcuticular Monocryl Mastisol Steri-Strips and island dressings were applied. Patient was awakened and extubated in the operating room taken to recovery in stable condition all sponge instrument needle counts listed as co rrect estimated blood loss 10 mL ROBERT CASTANEDA MD Sep 03, 2021 09:40
[2021-09-03] MEDS ORDERED: SUGAMMADEX SODIUM 200 MG/2 ML VIAL. IVP ONE (10:00)
[2021-09-03] MEDS ORDERED: KETOROLAC 30 MG/ML VIAL. ONE (10:09)
[2021-09-03] MEDS ORDERED: PROCHLORPERAZINE 10 MG/2 ML VIAL. IV ONE (11:45)
--- NOTE | 2021-09-03 12:31 | EKG ---
[facility] [address] [place] [address] Test Date: 2021-09-03 Test Time: 06:10:47 Pat Name: JACQUE BAH Department: Room: [facility] Gender: F Molder Machine: : 1995 Requested By: MATILDA DUNN Order Number: [id number] Reading MD: Adolfo Cam Measurements Intervals [place] Rate: 64 P: 38 NE: 180 QRS: 14 QRSD: 94 T: 41 QT: 408 QTc: 425 Interpretive Statements SINUS RHYTHM S1,S2,S3 PATTERN OTHERWISE NORMAL ECG RI6.02 No previous ECG available for comparison Electronically Signed On 09-04-2021 15:52:35 ARTIST AND REPERTOIRE MANAGER by Adolfo Cam
--- NOTE | 2021-09-03 12:31 | SSS ---
DATE OF SERVICE: 09/03/2021 ADMIT DATE: 09/03/2021 CHIEF COMPLAINT: Shortness of breath, abdominal pain. 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 She had a vaginal delivery 4 weeks ago. She has been doing relatively well, but now has developed right sided lower quadrant pain and some shortness of breath. She is a little anxious and tearful. We did some imaging that showing an appendicitis. I discussed the case with ER physician. We admitted the patient. She is going to surgery here in just a few minutes. PAST MEDICAL HISTORY: Ulcerative colitis and she had a vaginal delivery 4 weeks ago. ALLERGIES: SULFA. FAMILY HISTORY: Hypertension. 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 She is . She does not drink, smoke or take drugs. MEDICATIONS: Reviewed, please refer to the MRAD. REVIEW OF SYSTEMS: GENERAL: No history of weight change, weakness or fevers. SKIN: No bruising, hair changes or rashes. EYES: No blurred, double or loss of vision. NOSE AND THROAT: No history of nosebleeds, hoarseness or sore throat. HEART: No history of palpitations, chest pain or shortness of breath on exertion. LUNGS: She complains of shortness of breath. GASTROINTESTINAL: She complains of abdominal pain. GENITOURINARY: No history of frequency, urgency, hesitancy or nocturia. NEUROLOGIC: Denies history of numbness, tingling, tremor or weakness. PSYCHIATRIC: No history of panic, anxiety or depression. ENDOCRINE: No history of heat or cold intolerance, polyuria or polydipsia. EXTREMITIES: Denies muscle weakness, joint pain, pain on walking or stiffness. PHYSICAL EXAMINATION: VITALS: Within normal limits and are stable. GENERAL: No apparent distress. Alert and oriented. HEENT: Normal cephalic atraumatic, external auditory canals are patent EYES: Extraocular muscles are intact, pupils are equally round and reactive to light and accommodation MUSCULOSKELETAL: Well developed, well nourished, good range of motion ENDOCRINE: No thyromegaly was palpated LYMPHATICS: No cervical chain or axillary nodes were noted HEMATOPOIETIC: No bruising NECK: Supple, no JVD, no thyromegaly was noted. LUNGS: Clear to auscultation in all lung meredith without rhonchi or wheezing. HEART: RRR, S1, S2 present. Peripheral pulses intact, no obvious murmurs were noted. ABDOMEN: She is complaining of right lower quadrant pain and she has decreased bowel sounds with some right lower quadrant tenderness. EXTREMITIES: Without any cyanosis, clubbing, or edema. Pedal pulses intact, Homans sign is negative. NEUROLOGIC: She is a little weak and upset. PSYCHIATRIC: She is intermittently tearful. SKIN: No ulcerations or rashes, good skin turgor, no jaundice. VASCULAR: Good capillary refill, neurovascular bundle appears to be intact. LABORATORY DATA: CT of the abdomen shows appendicitis. ASSESSMENT AND PLAN: Appendicitis. The patient has been admitted. We started IV Zosyn. We consulted Dr. Madrigal. She is going to surgery. Postoperatively, we hope to get her home tomorrow. We will continue IV antibiotics for now. P.r.n., pain meds, home meds when possible deep thrombosis prophylaxis. Full code. P.r.n., Amara p.r.n. Medardo. LEAH/GABY DR: Khushboo TID: [id number]
[2021-09-03] MEDS: oxyCODONE/APAP 5/325 1 TAB TABLET PO PRN ×3 (12:35→21:15)
[2021-09-03] MEDS ORDERED: cefTRIAXone IV Push 1 GM VIAL. IVP SCH (15:00)
[2021-09-04 00:25] VITALS: BP 96/46
[2021-09-04] MEDS: oxyCODONE/APAP 5/325 1 TAB TABLET PO PRN ×4 (01:15→09:08)
[2021-09-04 05:10] VITALS: BP 102/69
[2021-09-04 07:48] LABS: BASO % 1 % (0-3); EOS # 0.2 x10^3/uL (0.0-0.7); EOS % 2 % (0-3); HEMATOCRIT 36.5 % (36.0-47.0); HEMOGLOBIN 12.3 g/dL (12.0-15.5); LYMPH # 3.4 x10^3/uL (1.0-4.8); LYMPH % 32 % (24-48); MEAN CORPUSCULAR HEMOGLOBIN 31 pg (25-35); MEAN CORPUSCULAR HGB CONC 34 g/dL (31-37); MEAN CORPUSCULAR VOLUME 92 fL (79-100); MONO # 0.6 x10^3/uL (0.0-1.1); MONO % 6 % (0-9); NEUT # 6.4 x10^3/uL (1.8-7.7); NEUT % 60 % (31-73); PLATELET COUNT 231 x10^3/uL (140-400); RED BLOOD COUNT 3.96 x10^6/uL (3.50-5.40); RED CELL DISTRIBUTION WIDTH 12.2 % (11.5-14.5); WHITE BLOOD COUNT 10.7 x10^3/uL (4.0-11.0)
--- NOTE | 2021-09-04 09:15 | PDOC ---
SURGICAL PROGRESS NOTE DATE: 09/04/21 TIME: 09:14 Subjective Patient states she is doing quite well tolerated breakfast Vital Signs Vital Signs Date Time Temp Pulse Resp B/P (MAP) Pulse Ox O2 Delivery O2 Flow Rate FiO2 09/04/21 09:08 20 09/04/21 09:02 Room Air 09/04/21 05:10 98.8 70 102/69 (80) 96 98.8 09/03/21 10:05 10 I&O Intake and Output 09/04/21 07:00 Intake Total 3460 ml Output Total 5 ml Balance 3455 ml Intake Oral 2060 ml IV Total 1400 ml Output Estimated Blood Loss 5 ml # Voids 3 PATIENT HAS A CASTELLANOS: No General: Alert, Oriented X3, Cooperative, mild distress Abdomen: Normal bowel sounds, Soft, Other (Mild incisional tenderness wounds clean dry and intact) Labs Laboratory Tests Test 09/03/21 06:10 09/03/21 06:37 09/03/21 07:51 09/04/21 07:10 White Blood Count 14.4 x10^3/uL (4.0-11.0) 10.7 x10^3/uL (4.0-11.0) Red Blood Count 4.60 x10^6/uL (3.50-5.40) 3.96 x10^6/uL (3.50-5.40) Hemoglobin 13.9 g/dL (12.0-15.5) 12.3 g/dL (12.0-15.5) Hematocrit 42.4 % (36.0-47.0) 36.5 % (36.0-47.0) Mean Corpuscular Volume 92 fL (79-100) 92 fL (79-100) Mean Corpuscular Hemoglobin 30 pg (25-35) 31 pg (25-35) Mean Corpuscular Hemoglobin Concent 33 g/dL (31-37) 34 g/dL (31-37) Red Cell Distribution Width 12.1 % (11.5-14.5) 12.2 % (11.5-14.5) Platelet Count 266 x10^3/uL (140-400) 231 x10^3/uL (140-400) Neutrophils (%) (Auto) 78 % (31-73) 60 % (31-73) Lymphocytes (%) (Auto) 15 % (24-48) 32 % (24-48) Monocytes (%) (Auto) 6 % (0-9) 6 % (0-9) Eosinophils (%) (Auto) 2 % (0-3) 2 % (0-3) Basophils (%) (Auto) 1 % (0-3) 1 % (0-3) Neutrophils # (Auto) 11.1 x10^3/uL (1.8-7.7) 6.4 x10^3/uL (1.8-7.7) Lymphocytes # (Auto) 2.1 x10^3/uL (1.0-4.8) 3.4 x10^3/uL (1.0-4.8) Monocytes # (Auto) 0.8 x10^3/uL (0.0-1.1) 0.6 x10^3/uL (0.0-1.1) Eosinophils # (Auto) 0.2 x10^3/uL (0.0-0.7) 0.2 x10^3/uL (0.0-0.7) Basophils # (Auto) 0.1 x10^3/uL (0.0-0.2) 0.0 x10^3/uL (0.0-0.2) Sodium Level 140 mmol/L (136-145) Potassium Level 3.3 mmol/L (3.5-5.1) Chloride Level 102 mmol/L (98-107) Carbon Dioxide Level 29 mmol/L (21-32) Anion Gap 9 (6-14) Blood Urea Nitrogen 22 mg/dL (7-20) Creatinine 0.9 mg/dL (0.6-1.0) Estimated GFR (Cockcroft-Gault) 74.6 BUN/Creatinine Ratio 24 (6-20) Glucose Level 103 mg/dL (70-99) Calcium Level 9.3 mg/dL (8.5-10.1) Total Bilirubin 0.4 mg/dL (0.2-1.0) Aspartate Amino Transf (AST/SGOT) 24 U/L (15-37) Alanine Aminotransferase (ALT/SGPT) 61 U/L (14-59) Alkaline Phosphatase 92 U/L (46-116) Total Protein 8.0 g/dL (6.4-8.2) Albumin 3.9 g/dL (3.4-5.0) Albumin/Globulin Ratio 1.0 (1.0-1.7) Lipase 88 U/L (73-393) Urine Collection Type Unknown Urine Color Yellow Urine Clarity Clear Urine pH 6.0 (<5.0-8.0) Urine Specific [place] >=1.030 (1.000-1.030) Urine Protein Negative mg/dL (NEG-TRACE) Urine Glucose (UA) Negative mg/dL (NEG) Urine Ketones (Stick) Negative mg/dL (NEG) Urine Blood Moderate (NEG) Urine Nitrite Negative (NEG) Urine Bilirubin Negative (NEG) Urine Urobilinogen Dipstick 0.2 mg/dL (0.2 mg/dL) Urine Leukocyte Esterase Trace (NEG) Urine RBC 6-10 /HPF (0-2) Urine WBC Occ /HPF (0-4) Urine Squamous Epithelial Cells Few /LPF Urine Bacteria 0 /HPF (0-FEW) Urine Test Positive (NEG) SARS-CoV-2 RNA (BREE) Negative (Negative) SARS-CoV-2 Antigen (Rapid) Negative (NEGATIVE) Laboratory Tests Test 09/04/21 07:10 White Blood Count 10.7 x10^3/uL (4.0-11.0) Red Blood Count 3.96 x10^6/uL (3.50-5.40) Hemoglobin 12.3 g/dL (12.0-15.5) Hematocrit 36.5 % (36.0-47.0) Mean Corpuscular Volume 92 fL (79-100) Mean Corpuscular Hemoglobin 31 pg (25-35) Mean Corpuscular Hemoglobin Concent 34 g/dL (31-37) Red Cell Distribution Width 12.2 % (11.5-14.5) Platelet Count 231 x10^3/uL (140-400) Neutrophils (%) (Auto) 60 % (31-73) Lymphocytes (%) (Auto) 32 % (24-48) Monocytes (%) (Auto) 6 % (0-9) Eosinophils (%) (Auto) 2 % (0-3) Basophils (%) (Auto) 1 % (0-3) Neutrophils # (Auto) 6.4 x10^3/uL (1.8-7.7) Lymphocytes # (Auto) 3.4 x10^3/uL (1.0-4.8) Monocytes # (Auto) 0.6 x10^3/uL (0.0-1.1) Eosinophils # (Auto) 0.2 x10^3/uL (0.0-0.7) Basophils # (Auto) 0.0 x10^3/uL (0.0-0.2) Problem List Problems Medical Problems: (1) Appendicitis Status: Acute Assessment/Plan Status post laparoscopic appendectomy with normal white count tolerating diet stable from surgical standpoint to be discharged Recommend follow-up 2 weeks no lifting more than 20 pounds Justicifation of Admission Dx: Justifications for Admission: Justification of Admission Dx: N/A ROBERT CASTANEDA MD Sep 04, 2021 09:15
[2021-09-04 09:32] VITALS: BP 104/63
[2021-09-04] MEDS ORDERED: OXYC1TAB15 PO (10:47)
--- NOTE | 2021-09-04 11:00 | NUR ---
Discharge instructions given , prescriptions called and sent in electronically. Patient voices understanding
--- NOTE | 2021-09-04 11:30 | NUR ---
To awaiting car per w/c vss
--- NOTE | 2021-09-07 09:08 | PATHOLOGY ---
[facility] Accession Number: [id number] . 01 Material submitted: . appendix - APPENDIX W/ CONTENTS . 01 Clinical history: . APPENDICITIS LAPAROSCOPIC APPENDECTOMY . 02 Diagnosis: Appendix, laparoscopic appendectomy: - Acute appendicitis. (ELYSSA:janice; 09/06/2021) [facility] 09/06/2021 1341 Local . 02 Comment: There is no evidence of rupture. (ELYSSAM:janice; 09/06/2021) . 02 Electronically signed: . Humphrey Carnes MD, Pathologist NPI- [id number] . 01 Gross description: . Fixative: Formalin Labeled: Appendix and contents Appendix length: 7.6 cm Appendix diameter: 1.3 cm Mesoappendix: 6.2 x 3.6 x 1.8 cm Proximal margin: Closed with a staple line Serosa: Dawn-brown and smooth with focal hemorrhage and scant dawn-white purulent exudate Cut surface: The mid to distal appendix displays a dilated lumen containing friable dawn-white debris Luminal diameter: Up to 0.8 cm Perforation: No Lesions/abnormalities: Previously described A1 Proximal margin (inked black) and mid appendix A2 distal tip (SK; 09/05/2021) [facility]/SYC 09/05/2021 0913 Local . 02 Pathologist provided ICD-10: K35.80 . 02 CPT . 462334 Specimen Comment: A courtesy copy of this report has been sent to [phone] Specimen Comment: [id number], Specimen Comment: Report sent to , DR SOLIZ / DR ROLON Specimen Comment: A duplicate report has been generated due to demographic updates. Performed at: 01 [facility] [address], [place] [id number] MD Robb Machuca MD Phone: [phone] Performed at: 02 [facility] [address] [place], [place] [id number] MD Humphrey Carnes MD Phone: [phone]
== END 2021-09-04 11:30 | disposition home or self-care (01) | DRG 342 ==
LOC: ER 06:02 → ED HOLD 08:12 → ER 08:41 → 4 NORTH 10:18 → 3 NORTH 12:00
PROVIDERS: ADMIT Internal Medicine; ATTEND Internal Medicine
PROC: 0DTJ4ZZ Resection of Appendix, Percutaneous Endoscopic Approach (ICD-10-PCS; principal; 2021-09-03 09:00)
DX: K35.80 Unspecified acute appendicitis (principal); K51.90 Ulcerative colitis, unspecified, without complications; Z82.49 Family history of ischemic heart disease and other diseases of the circulatory system; Z20.822 Contact with and (suspected) exposure to COVID-19
CPT/HCPCS: 36415; 74177; 80053; 81001; 81025; 83690; 85025; 87077; 87086; 87426; 88304; 93005; 96365; 96375; 96376; A4314; A4364; A4452; A4930; A6219; J0696; J0780; J1100; J1170; J2250; J2270; J2370; J2405; J2543; J2704; J2710; J3010; J3490; J7120; Q9967; U0003; U0005; 99285-25; G0378